=== PATIENT | female | born 1965 | race Caucasian/White ===

== ENCOUNTER 2021-12-14 10:00 | Emergency (ER) | payer BC ==
[2021-12-14] MEDS ORDERED: Zestril 10 MG PO STA (11:06)
--- NOTE | 2021-12-14 11:26 | ERPHSYRPT ---
- History of Present Illness Time Seen by Provider: 12/14/21 10:20 Source: patient Exam Limitations: no limitations Patient Subjective Stated Complaint: Pt states "I have not felt well for about a week now and I went to [facility] and they said it was viral and went [facility] and they told me my blood pressure was to high. I have been out of my lisinopril for two weeks." Triage Nursing Assessment: PT presented alert and oriented X3, skin pwd. Pt able to speak in clear full sentences pt in no apparent respiratory distress. Pt resting comfortably on the bed. Physician History: Patient is 46-year-old female presents emergency department for evaluation of feeling unwell x1 week. Patient followed up at a outpatient clinic. Patient was advised has a viral syndrome. Patient still not feeling well. [facility]. The observer blood pressure was elevated. They sent her to our ED. Patient complains of mild shortness of breath and a cough. No chest pain. No nausea vomiting or diaphoresis. Patient states she has been off of her lisinopril for approximately 2 weeks. Patient ran out of her blood pressure medication has been unable to see her primary care provider. Patient otherwise feels well. She voices no other complaints or concerns at this time. Portions of this note were created with voice recognition technology. There may be grammatical, spelling, punctuation or sound alike errors Timing/Duration: week(s) Severity: moderate Modifying Factors: Improves With: nothing Associated Symptoms: denies symptoms, cough, other (Mild shortness of breath) Allergies/Adverse Reactions: No Known Drug Allergies Allergy (Verified 12/14/21 10:09) Home Medications: Lisinopril 10 mg [Zestril 10 MG] 10 mg PO DAILY 12/14/21 [History] Hx Tetanus, Diphtheria Vaccination/Date Given: No Hx Influenza Vaccination/Date Given: Yes Hx Pneumococcal Vaccination/Date Given: No Immunizations Up to Date: Yes Travel Risk - International Travel Have you traveled outside of the country in past 3 weeks: No - Coronavirus Screening Symptoms: Cough: New Onset Close contact with a COVID-19 positive Pt in past 14-21 Days: No - Vaccine Status Have you recieved a Covid-19 vaccination: Yes [employer]: Moderna - Vaccination Dates Date of 2cond Vaccination (if applicable): 2020 - Review of Systems Constitutional: No Symptoms, No Fever, No Chills Eyes: No Symptoms Ears, Nose, & Throat: No Symptoms Respiratory: No Symptoms, No Cough, No Dyspnea Cardiac: No Symptoms, No Chest Pain, No Edema, No Syncope Abdominal/Gastrointestinal: No Symptoms, No Abdominal Pain, No Nausea, No Vomiting, No Diarrhea Genitourinary Symptoms: No Symptoms, No Dysuria Musculoskeletal: No Symptoms, No Back Pain, No Neck Pain Skin: No Symptoms, No Rash Neurological: No Symptoms, No Dizziness, No Focal Weakness, No Sensory Changes Psychological: No Symptoms Endocrine: No Symptoms Hematologic/Lymphatic: No Symptoms Immunological/Allergic: No Symptoms All Other Systems: Reviewed and Negative - Past Medical History Pertinent Past Medical History: Yes Cardiac History: Hypertension - Past Surgical History Past Surgical History: No - Social History Smoking Status: Never smoker Exposure to second hand smoke: No Drug Use: none Patient Lives Alone: Yes - Nursing Vital Signs Nursing Vital Signs: Initial Vital Signs Temperature 97.7 F 12/14/21 10:03 Pulse Rate 108 H 12/14/21 10:03 Respiratory Rate 12/14/21 10:03 Blood Pressure 213/120 12/14/21 10:03 O2 Sat by Pulse Oximetry 98 12/14/21 10:03 Pain Scale Pain Intensity 0 - Physical Exam General Appearance: no apparent distress, alert Eye Exam: PERRL/EOMI, eyes nml inspection Ears, Nose, Throat Exam: normal ENT inspection, TMs normal, pharynx normal, moist mucous membranes Neck Exam: normal inspection, non-tender, supple, full range of motion Respiratory Exam: normal breath sounds, lungs clear, airway intact, No respiratory distress Cardiovascular Exam: regular rate/rhythm, normal heart sounds, normal peripheral pulses Gastrointestinal/Abdomen Exam: soft, normal bowel sounds, No tenderness, No mass Back Exam: normal inspection, normal range of motion, No CVA tenderness, No vertebral tenderness Extremity Exam: normal inspection, normal range of motion, pelvis stable Neurologic Exam: alert, oriented x 3, cooperative, normal mood/affect, nml c erebellar function, nml station & gait, sensation nml, No motor deficits Skin Exam: normal color, warm, dry, No rash Lymphatic Exam: No adenopathy SpO2 Interpretation: normal SpO2: 98 O2 Delivery: Room Air - Course Nursing assessment & vital signs reviewed: Yes EKG Interpreted by Me: RATE (101), Sinus Tach, NORMAL AXIS, NORMAL INTERVALS - Radiology Exams Chest X-ray Interpretation: Interpreted by me (Normal heart lungs and bony thorax. Negative chest x-ray) Ordered Tests: Active Orders 24 hr Category Date Time Status CHEST 1 VIEW (PORTABLE) Stat Exams 12/14/21 11:06 Completed CBC W DIFF Stat Lab 12/14/21 11:25 Completed TROPONIN Q4H Lab 12/14/21 13:26 Completed TROPONIN Q4H Lab 12/14/21 19:15 Ordered TROPONIN Q4H Lab 12/14/21 23:15 Ordered Medication Summary Discontinued Medications Generic Name Dose Route Start Last Admin Trade Name Freq PRN Reason Stop Dose Admin Lisinopril 10 mg 12/14/21 11:06 12/14/21 11:19 Lisinopril 10 Mg Tablet PO 12/14/21 11:07 10 mg STAT STA Administration Lab/Rad Data: Laboratory Result Diagrams 12/14/21 11:25 12/14/21 11:25 Laboratory Results 12/14/21 12/14/21 12/14/21 Range/Units 13:26 11:25 11:25 WBC 10.9 H (4.0-10.5) x10^3/uL RBC 4.62 (4.1-5.4) x10^6/uL Hgb 14.2 (12.0-16.0) g/dL Hct 43.7 (35-47) % MCV 94.6 (78-100) fL MCH 30.7 (26-32) pg MCHC 32.5 (32-36) g/dL RDW 12.8 (11.5-14.0) % Plt Count 353 (150-450) x10^3/uL MPV 9.7 (7.5-11.0) fL Gran % 62.9 (36.0-66.0) % Immature Gran % (Auto) 0.4 (0.00-0.4) % Nucleat RBC Rel Count 0.0 (0.00-0.1) % Eos # (Auto) 0.97 H (0-0.5) x10^3/uL Immature Gran # (Auto) 0.04 H (0.00-0.03) x10^3u/L Absolute Lymphs (auto) 2.17 (1.0-4.6) x10^3/uL Absolute Monos (auto) 0.77 (0.0-1.3) x10^3/uL Absolute Nucleated RBC 0.00 (0.00-0.01) x10^3u/L Lymphocytes % 20.0 L (24.0-44.0) % Monocytes % 7.1 (0.0-12.0) % Eosinophils % 8.9 H (0.00-5.0) % Basophils % 0.7 (0.0-0.4) % Absolute Granulocytes 6.82 (1.4-6.9) x10^3/uL Basophils # 0.08 (0-0.4) x10^3/uL Sodium Direct 141 (138-146) mmol/L Potassium 4.4 (3.5-4.9) mmol/L Chloride 103 (98-109) mmol/L Carbon Dioxide 29 (24-29) mmol/L Venous BUN 7 L (8-26) mg/dL Creatinine 0.7 (0.6-1.3) mg/dL Glucose 90 (70-105) mg/dL Ionized Calcium 1.32 (1.12-1.32) mmol/L Troponin 0.01 (0.00-0.03) ng/mL Troponin I < 0.012 (0.000-0.034) ng/mL - Progress Progress: improved Progress Note: Patient reassessed. Patient states she feels well. Chest x-ray negative. Troponin negative x2. Work-up essentially unremarkable. No indication for further work-up at this time. Will discharge home. Patient will follow up with her primary care doctor for a reevaluation. Patient's blood pressure has been elevated due to the fact that she has not taken her lisinopril in approximately 2 weeks. Patient received a dose of lisinopril in our ED today. A prescription for the same will be forwarded to patient's pharmacy. Blood pressure 160/98. Portions of this note were created with voice recognition technology. There may be grammatical, spelling, punctuation or sound alike errors 12/14/21 14:53 12/14/21 14:56 Counseled pt/family regarding: lab results, diagnosis, need for follow-up, rad results - Departure Departure Disposition: Home Clinical Impression: Hypertension, Cough Condition: Stable Critical Care Time: No Referrals: JAROCHO CARRION, STERNMAN [Primary Care Provider] - Follow up/PCP as directed Additional Instructions: Discharge/Care Plan PHUONG CRAIN was seen on 12/14/21 in the Emergency Room. The patient was counseled regarding Diagnosis,Lab results, Imaging studies, need for follow up and when to return to the Emergency Room. Prescriptions given: Discharge Note I have spoken with the patient and/or caregivers. I have explained the patient's condition, diagnosis and treatment plan based on the information available to me at this time. I have answered the patient's and/or caregiver's questions and addressed any concerns. The patient and/or caregivers have as good understanding of the patient's diagnosis, condition and treatment plan as can be expected at this point. The vital signs have been stable. The patient's condition is stable and appropriate for discharge from the emergency department. The patient will pursue further outpatient evaluation with the primary care physician or other designated or consulting physician as outlined in the discharge instructions. The patient and/or caregivers are agreeable to this plan of care and follow-up instructions have been explained in detail. The patient and/or caregivers have received these instruction. The patient/and or caregivers are aware that any significant change in condition or worsening of symptoms should prompt an immediate return to this or the closest emergency department or call 911. Prescriptions: Lisinopril 10 mg [Zestril 10 MG] 10 mg PO DAILY 14 Days #14 tablet
[2021-12-14 11:28] LABS: Absolute Neutrophil Ct (ANC) 6.82 x10^3/uL (1.4-6.9); Basophil (Absolute #) 0.08 x10^3/uL (0-0.4); Eosinophil % 8.9 % (0.00-5.0); Eosinophil (Absolute #) 0.97 x10^3/uL (0-0.5); Hematocrit 43.7 % (35-47); Hemoglobin 14.2 g/dL (12.0-16.0); Lymphocyte (Absolute #) 2.17 x10^3/uL (1.0-4.6); Mean Cell Volume 94.6 fL (78-100); Mean Corpuscular Hemoglobin 30.7 pg (26-32); Mean Corpuscular Hgb Concent. 32.5 g/dL (32-36); Mean Platelet Volume 9.7 fL (7.5-11.0); Monocyte (Absolute #) 0.77 x10^3/uL (0.0-1.3); Monocytes % 7.1 % (0.0-12.0); Neutrophil % 62.9 % (36.0-66.0); Platelet Count 353 x10^3/uL (150-450); Red Blood Count 4.62 x10^6/uL (4.1-5.4); Red Cell Distribution Width 12.8 % (11.5-14.0); White Blood Count 10.9 x10^3/uL (4.0-10.5)
--- NOTE | 2021-12-14 11:30 | XRAY ---
Indication: Cough and short of breath. Comparison: May 24, 2021 Portable chest again demonstrates normal heart and lungs. Bony thorax intact. No new/acute findings.
[2021-12-14 11:58] LABS: ISTAT CREA 0.7 mg/dL (0.6-1.3); ISTAT K 4.4 mmol/L (3.5-4.9)
[2021-12-14 12:11] LABS: ISTAT cTNI 0.01 ng/mL (0.00-0.03)
[2021-12-14 15:53] VITALS: BP 152/88
[2021-12-14] MEDS ORDERED: DUONEB 0.5-3 MG/3 ml Neb IH ONE ×2 (16:01→16:06)
[2021-12-14 16:15] VITALS: PULSE 94; O2SAT 95
--- NOTE | 2021-12-14 16:53 | XRAY ---
Indication: Cough and short of breath. Elevated d-dimer. Multiple contiguous images obtained through the chest using 100 cc Isovue 370 contrast and PE protocol. Comparison: None Good opacification of the pulmonary arteries to include the lobar and segmental branches. Mild respiration artifact limits evaluation of the more distal lobar and segmental branches. No obvious pulmonary embolus. Heart not enlarged. Aorta is normal in course and caliber. Small right hilar and subcarinal calcified nodes. No pathologic mediastinal/hilar lymphadenopathy. Small hiatal hernia. Lungs demonstrates posterior left lower lobe and lesser degree right middle lobe subsegmental atelectasis/scarring. Tiny right middle lobe calcified granuloma. No suspicious pulmonary mass, infiltrate, effusion, or pneumothorax. Bony thorax intact with mild degenerative changes throughout the spine. Left axilla lymphadenopathy, largest 4.3 x 4.9 cm. No pathologic right axillary lymphadenopathy. Limited upper abdomen including adrenal glands are unremarkable. Impression: 1. Pulmonary embolus evaluation limited by respiration artifact. No obvious pulmonary embolus or acute cardiopulmonary abnormalities. 2. Left axillary lymphadenopathy presumed reactive. Malignancy not completely excluded. 3. Chronic findings including small hiatal hernia, degenerative spondylosis, and old granulomatous disease.
[2021-12-14] MEDS ORDERED: DELTASONE 20 MG PO ONE (17:21)
[2021-12-14] MEDS ORDERED: DELTASONE 20 MG ONE (17:32)
== END 2021-12-14 17:39 | disposition home or self-care (01) ==
LOC: ED 10:00
DX: I10 Essential (primary) hypertension (principal); R05.9 Cough, unspecified; R59.0 Localized enlarged lymph nodes; J45.909 Unspecified asthma, uncomplicated; R06.02 Shortness of breath; Z79.899 Other long term (current) drug therapy
CPT/HCPCS: 36415; 71045; 71260; 80047; 84484; 85025; 85379; 94640; 99284; A9270-GY